=== PATIENT | male | born 1980 | race Caucasian/White ===

== ENCOUNTER 2018-11-10 13:42 | Emergency (ER) | payer MEDICAID ==
[~2018-11-10] VITALS: Ht 188 cm; Wt 144.0 kg
[2018-11-10] MEDS ORDERED: ondansetron/PF 4mg/2ml inj IV ONE (16:00)
[2018-11-10] MEDS ORDERED: normal saline 1000ML IV soln IVB ONE (16:00)
[2018-11-10] MEDS ORDERED: morphine 4 MG/ML inj SYRINge IV PRN (16:00)
[2018-11-10 16:06] LABS: CLARITY,URINE CLOUDY (Clear); GLUCOSE, URINE NEGATIVE (Neg); KETONES,URINE NEGATIVE (Neg); LEUKOCYTE ESTERASE ,URINE NEGATIVE (Neg); NITRITES, URINE NEGATIVE (Neg); OCCULT BLOOD,URINE LARGE (Neg); PH,URINE 6.5 (4.8-8.0); PROTEIN,URINE 30 mg/dl (Neg)
[2018-11-10 16:09] LABS: COLOR,URINE RED (Yellow); UA COLLECTION TYPE VOIDED
[2018-11-10 16:15] LABS: BACTERIA,URINE FEW /HPF (Neg); CAL OXALATE CRYSTALS 1+ /HPF (NEGATIVE); MUCUS STRANDS NONE SEEN /LPF (Neg); RBC,URINE TNTC /HPF (0-2); SQUAMOUS EPITHELIAL CELL,UR NONE SEEN /LPF (FEW); WBC,URINE 0-4 /HPF (0-4)
[2018-11-10 16:16] LABS: SPERM FEW /HPF (NEGATIVE)
[2018-11-10 16:27] LABS: BASOPHILS % (AUTO) 0.6 % (0-1); EOSINOPHILS # (AUTO) 0.1 X10'3 (0-0.9); EOSINOPHILS % (AUTO) 2.2 % (0-6); HEMATOCRIT 46.4 % (42.0-52.0); HEMOGLOBIN 15.8 g/dl (14.0-17.9); LYMPHOCYTES # (AUTO) 1.2 X10'3 (1.1-4.8); LYMPHOCYTES % (AUTO) 20.7 % (21-51); MEAN CORPUSCULAR VOLUME 91.1 FL (78-98); MEAN PLATELET VOLUME 9.5 FL (7.4-10.4); MONOCYTES # (AUTO) 0.5 X10'3 (0-0.9); MONOCYTES % (AUTO) 7.8 % (2-12); NEUTROPHILS # (AUTO) 4.1 X10'3 (1.8-7.7); NEUTROPHILS % (AUTO) 68.7 % (42-75); PLATELET COUNT 256 X10'3 (140-440); RED BLOOD COUNT 5.09 X10'6 (4.70-6.10); RED CELL DISTRIBUTION WIDTH 13.3 % (11.5-14.5)
[2018-11-10 16:38] LABS: ALANINE AMINOTRANSFERASE 206 U/L (12-78); ALKALINE PHOSPHATASE 105 IU/L (46-116); ANION GAP 10 (8-16); ASPARTATE AMINO TRANSFERASE 92 U/L (10-37); BILIRUBIN,TOTAL 0.7 MG/DL (0.1-1.0); BLOOD UREA NITROGEN 19 MG/DL (7-18); BUN/CREATININE RATIO 19.8 (5.4-32.0); CALCIUM 8.9 MG/DL (8.5-10.1); CHLORIDE 106 MMOL/L (99-107); CREATININE 0.96 MG/DL (0.60-1.10); GLUCOSE 97 MG/DL (70-104); LIPASE 140 U/L (73-393); POTASSIUM 3.8 MMOL/L (3.5-5.1); SODIUM 139 MMOL/L (135-145); eGFR 87 ML/MIN
[2018-11-10 16:44] VITALS: BP 152/95
[2018-11-10] MEDS ORDERED: HYDROmorphone 1 mg/ml syringe IV ONE (17:00)
[2018-11-10] MEDS ORDERED: HYDR-3965 PO (17:21)
[2018-11-10] MEDS ORDERED: IBUP-1984 PO (17:21)
[2018-11-10] MEDS ORDERED: FLO0.4C PO (17:21)
== END 2018-11-10 17:45 | disposition home or self-care (01) ==
LOC: ER 13:44
DX: N20.0 Calculus of kidney (principal); Z87.442 Personal history of urinary calculi; Z88.6 Allergy status to analgesic agent; Z88.8 Allergy status to other drugs, medicaments and biological substances; Z91.030 Bee allergy status; Z79.899 Other long term (current) drug therapy
CPT/HCPCS: 36415; 74176; 80053; 81001; 83690; 85025; 96374; 96375; 99284; J1170; J2270; J2405; J7030